=== PATIENT | female | born 2000 | race Caucasian/White ===

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

== ENCOUNTER 2018-01-24 12:18 | Emergency (ER) | payer OTHER ==
[2018-01-24] MEDS ORDERED: ACETAMINOPHEN 500 MG TAB ONE (14:38)
[2018-01-24] MEDS ORDERED: NA CHLORIDE 0.9% 1,000 ML ONE (14:39)
[2018-01-24 15:27] LABS: Absolute Monocytes 0.8 K/uL (0.1-1.3); Absolute Neutrophil 10.4 K/uL (1.8-8.0); Basophils % 0.2 % (0-1.3); Eosinophils % 0.5 % (0-4.4); Hematocrit 37.3 % (36.0-45.0); Lymphocytes % 14.9 % (15.3-44.8); MCH 30.7 pg (27.0-35.0); MCV 88.2 fL (80-100); MPV 8.7 fL (7.6-11.3); Monocytes % 6.1 % (3.3-12.3); RBC Red Blood Cell Count 4.23 M/uL (3.86-4.86)
[2018-01-24 15:43] LABS: BUN Blood Urea Nitrogen 6 mg/dL (7-18); Bicarbonate 26 mmol/L (21-32); Glucose Level 90 mg/dL (74-106); Potassium 3.9 mmol/L (3.5-5.1); Sodium Level 138 mmol/L (136-145)
--- NOTE | 2018-01-24 16:20 | ER ---
Nurse's Notes [facility] Name: Juan Carlos Mei Age: 17 yrs Sex: Female : 2000 Arrival Date: 01/24/2018 Time: 12:19 Bed 26 Private MD: Unknown, Unknown Diagnosis: Nausea;Near Syncope Presentation: 01/24 12:27 Presenting complaint: Patient states: Reports episode of dizziness and nausea this AM aj at 1030/ Patient reports she was sent home from work. Able to tolerate food as patient reports she ate on her way to the ER. Transition of care: patient was not received from another setting of care. Onset of symptoms was January 24, 2018. Risk Assessment: Do you want to hurt yourself or someone else? Patient reports no desire to harm self or others. Initial Sepsis Screen: Does the patient meet any 2 criteria? No. Patient's initial sepsis screen is negative. Does the patient have a suspected source of infection? No. Patient's initial sepsis screen is negative. Care prior to arrival: None. 12:27 Method Of Arrival: Ambulatory aj 12:27 Acuity: HERVE 3 Triage Assessment: 12:29 General: Appears in no apparent distress. comfortable, Behavior is calm, cooperative, aj appropriate for age. Pain: Denies pain. Neuro: Level of Consciousness is awake, alert, obeys commands, Oriented to person, place, time, situation, Appropriate for age Reports dizziness. Neuro: Reports headache. Respiratory: Airway is patent Trachea midline Respiratory effort is even, unlabored, Respiratory pattern is regular, symmetrical. GI: Reports nausea. Derm: Skin is intact, is healthy with good turgor, Skin is pink, warm \T\ dry. normal. 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 - Social history:: Smoking status: Patient/guardian denies using tobacco. - Ebola Screening: : Patient negative for fever greater than or equal to 101.5 degrees Fahrenheit, and additional compatible Ebola Virus Disease symptoms Patient denies exposure to infectious person Patient denies travel to an Ebola-affected area in the 21 days before illness onset No symptoms or risks identified at this time. Screenin:52 Abuse screen: Denies threats or abuse. Nutritional screening: No deficits noted. tl3 Tuberculosis screening: No symptoms or risk factors identified. Fall Risk None identified. Assessment: 13:20 General: Appears in no apparent distress. comfortable, slender, well groomed, well tl3 developed, well nourished, Behavior is calm, cooperative, appropriate for age. Pain: Denies pain. Neuro: Level of Consciousness is awake, alert, obeys commands, Oriented to person, place, time, situation, Appropriate for age. Neuro: Reports dizziness. Cardiovascular: Heart tones S1 S2 present Patient's skin is warm and dry. Respiratory: Airway is patent Respiratory effort is even, unlabored, Respiratory pattern is regular, symmetrical, Breath sounds are clear bilaterally. GI: Abdomen is. : Urine is clear. EENT: No signs and/or symptoms were reported regarding the EENT system. Derm: No signs and/or symptoms reported regarding the dermatologic system. Musculoskeletal: No signs and/or symptoms reported regarding the musculoskeletal system. 15:52 Reassessment: Patient appears in no apparent distress at this time. No changes from tl3 previously documented assessment. Patient and/or family updated on plan of care and expected duration. Pain level reassessed. Patient is alert, oriented x 3, equal unlabored respirations, skin warm/dry/pink. no needs at this time. 16:31 Reassessment: Patient appears in no apparent distress at this time. No changes from tl3 previously documented assessment. Patient and/or family updated on plan of care and expected duration. Pain level reassessed. Patient is alert, oriented x 3, equal unlabored respirations, skin warm/dry/pink. Bradley at bedside discussing POC. Vital Signs: 12:29 BP 138 / 76; Pulse 94; Resp 15; Temp 98.2; Pulse Ox 100% on R/A; Weight 86.18 kg; aj Height 5 ft. 4 in. (162.56 cm); 13:44 BP 113 / 66 Supine; Pulse 82; Pulse Ox 100% on R/A; tl3 13:45 BP 118 / 73 Sitting; Pulse 81; Pulse Ox 99% on R/A; tl3 13:46 BP 120 / 79 Standing; Pulse 88; Pulse Ox 100% on R/A; tl3 15:54 BP 104 / 71; Pulse 71; Resp 18; Pulse Ox 100% on R/A; tl3 12:29 Body Mass Index 32.61 (86.18 kg, 162.56 cm) ED Course: 12:19 Patient arrived in ED. mr 12:20 Unknown, Unknown is Private Physician. mr 12:28 Triage completed. 12:29 Arm band placed on right wrist. Patient placed in waiting room, Patient notified of wait time. 13:10 Patient has correct armband on for positive identification. Placed in gown. Bed in low tl3 position. Call light in reach. Side rails up X2. Warm blanket given. 13:12 Bradley Gates PA is PHCP. [facility] 13:12 Orlando Woo MD is Attending Physician. [facility] 13:12 Capri Cardenas, ISABELLA is Primary Nurse. tl3 13:30 EKG done, by ED staff, reviewed by Bradley GLOVER. [facility] 14:10 Inserted saline lock: 20 gauge in right antecubital area, using aseptic technique. tl3 15:52 No provider procedures requiring assistance completed. tl3 16:31 IV discontinued, intact, bleeding controlled, No redness/swelling at site. Pressure tl3 dressing applied. Administered Medications: 14:51 Drug: NS 0.9% 1000 ml Route: IV; Rate: 1000 ml; Site: right antecubital; tl3 15:52 Follow up: IV Status: Completed infusion; IV Intake: 1000ml tl3 14:51 Drug: Tylenol 1000 mg Route: PO; tl3 15:51 Follow up: Response: No adverse reaction tl3 Intake: 15:52 IV: 1000ml; Total: 1000ml. tl3 Outcome: 16:20 Discharge ordered by . 8 16:31 Discharged to home ambulatory. tl3 16:31 Condition: good 16:31 Discharge instructions given to patient, family, Instructed on discharge instructions, follow up and referral plans. Demonstrated understanding of instructions, follow-up care. 16:33 Patient left the ED. tl3 Signatures: Nany Lane RN RN aj Rivera, Maria mr Roszak, Josh, PA PA Rebecca Tirado [facility] Capri Cardenas RN RN tl3
--- NOTE | 2018-01-24 16:20 | EDPHYS ---
Physician Documentation [facility] Name: Juan Carlos Mei Age: 17 yrs Sex: Female : 2000 Arrival Date: 01/24/2018 Time: 12:19 Bed 26 Private MD: Unknown, Unknown ED Physician Orlando Woo HPI: 01/24 13:56 This 17 yrs old Female presents to ER via Ambulatory with complaints of jr8 Nausea. 13:56 The patient presents to the emergency department with nausea. Onset: The jr8 symptoms/episode began/occurred acutely, today. Possible causes: . The symptoms are aggravated by nothing. The symptoms are alleviated by nothing. Associated signs and symptoms: Pertinent positives: dizziness and near syncope. Severity of symptoms: At their worst the symptoms were mild in the emergency department the symptoms are unchanged. The patient has not experienced similar symptoms in the past. The patient has not recently seen a physician. 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 - Social history:: Smoking status: Patient/guardian denies using tobacco. - Ebola Screening: : Patient negative for fever greater than or equal to 101.5 degrees Fahrenheit, and additional compatible Ebola Virus Disease symptoms Patient denies exposure to infectious person Patient denies travel to an Ebola-affected area in the 21 days before illness onset No symptoms or risks identified at this time. ROS: 13:56 Eyes: Negative for injury, pain, redness, and discharge, ENT: Negative for injury, jr8 pain, and discharge, Neck: Negative for injury, pain, and swelling, Cardiovascular: Negative for chest pain, palpitations, and edema, Respiratory: Negative for shortness of breath, cough, wheezing, and pleuritic chest pain, Abdomen/GI: Negative for abdominal pain, vomiting, diarrhea, and constipation, Back: Negative for injury and pain, MS/Extremity: Negative for injury and deformity, Skin: Negative for injury, rash, and discoloration. 13:56 Neuro: Positive for dizziness, near syncope, Negative for altered mental status, gait disturbance, headache, hearing loss, loss of consciousness, numbness, seizure activity, speech changes, syncope, tinnitus, tremor, visual changes, weakness. Exam: 13:56 Eyes: Pupils equal round and reactive to light, extra-ocular motions intact. Lids and jr8 lashes normal. Conjunctiva and sclera are non-icteric and not injected. Cornea within normal limits. Periorbital areas with no swelling, redness, or edema. ENT: Nares patent. No nasal discharge, no septal abnormalities noted. Tympanic membranes are normal and external auditory canals are clear. Oropharynx with no redness, swelling, or masses, exudates, or evidence of obstruction, uvula midline. Mucous membranes moist. Neck: Trachea midline, no thyromegaly or masses palpated, and no cervical lymphadenopathy. Supple, full range of motion without nuchal rigidity, or vertebral point tenderness. No Meningismus. Cardiovascular: Regular rate and rhythm with a normal S1 and S2. No gallops, murmurs, or rubs. Normal PMI, no JVD. No pulse deficits. Respiratory: Lungs have equal breath sounds bilaterally, clear to auscultation and percussion. No rales, rhonchi or wheezes noted. No increased work of breathing, no retractions or nasal flaring. Abdomen/GI: Soft, non-tender, with normal bowel sounds. No distension or tympany. No guarding or rebound. No evidence of tenderness throughout. Back: No spinal tenderness. No costovertebral tenderness. Full range of motion. Skin: Warm, dry with normal turgor. Normal color with no rashes, no lesions, and no evidence of cellulitis. MS/ Extremity: Pulses equal, no cyanosis. Neurovascular intact. Full, normal range of motion. Neuro: Awake and alert, GCS 15, oriented to person, place, time, and situation. Cranial nerves II-XII grossly intact. Motor strength 5/5 in all extremities. Sensory grossly intact. Cerebellar exam normal. Normal gait. Vital Signs: 12:29 BP 138 / 76; Pulse 94; Resp 15; Temp 98.2; Pulse Ox 100% on R/A; Weight 86.18 kg; aj Height 5 ft. 4 in. (162.56 cm); 13:44 BP 113 / 66 Supine; Pulse 82; Pulse Ox 100% on R/A; tl3 13:45 BP 118 / 73 Sitting; Pulse 81; Pulse Ox 99% on R/A; tl3 13:46 BP 120 / 79 Standing; Pulse 88; Pulse Ox 100% on R/A; tl3 15:54 BP 104 / 71; Pulse 71; Resp 18; Pulse Ox 100% on R/A; tl3 12:29 Body Mass Index 32.61 (86.18 kg, 162.56 cm) aj MDM: 13:14 Patient medically screened. 8 16:18 Data reviewed: vital signs, nurses notes, lab test result(s), EKG. Data interpreted: 8 Pulse oximetry: on room air is 100 %. Interpretation: normal. Counseling: I had a detailed discussion with the patient and/or guardian regarding: the historical points, exam findings, and any diagnostic results supporting the discharge/admit diagnosis, lab results, the need for outpatient follow up, an OB/Gyne specialist, to return to the emergency department if symptoms worsen or persist or if there are any questions or concerns that arise at home. Response to treatment: the patient's symptoms have markedly improved after treatment, patient is well hydrated. 01/24 13:14 Order name: CBC with Diff; Complete Time: 15:35 01/24 13:14 Order name: Basic Metabolic Panel; Complete Time: 15:51 rust 01/24 13:14 Order name: IV; Complete Time: 14:52 rust 01/24 13:14 Order name: EKG; Complete Time: 13:15 01/24 13:14 Order name: EKG - Nurse/Tech; Complete Time: 14:31 01/24 13:54 Order name: Urine Dipstick-Ancillary (obtain specimen); Complete Time: 16:33 rust 01/24 13:54 Order name: Orthostatics; Complete Time: 14:51 rust Administered Medications: 14:51 Drug: NS 0.9% 1000 ml Route: IV; Rate: 1000 ml; Site: right antecubital; tl3 15:52 Follow up: IV Status: Completed infusion; IV Intake: 1000ml tl3 14:51 Drug: Tylenol 1000 mg Route: PO; tl3 15:51 Follow up: Response: No adverse reaction tl3 Disposition: 01/24/18 16:20 Discharged to Home. Impression: Nausea, Near Syncope . - Condition is Stable. - Discharge Instructions: Nausea, Adult. - Medication Reconciliation Form, Thank You Letter, Antibiotic Education, Prescription Opioid Use form. - Follow up: Private Physician; When: 5 - 6 days; Reason: Recheck today's complaints, Continuance of care, Re-evaluation by your physician. - Problem is new. - Symptoms have improved. Addendum: 01/26/2018 08:04 Co-signature as Attending Physician, Orlando Woo MD I agree with the assessment and w a plan of care. Signatures: Dispatcher [employer] EDNany Shi RN RN Bradley Thomas PA PA jr8 Orlando Woo MD MD wa Lowrey, Tammy RN RN tl3 Corrections: (The following items were deleted from the chart) 01/24 16:33 16:20 01/24/2018 16:20 Discharged to Home. Impression: Nausea; Near Syncope . Condition tl3 is Stable. Forms are Medication Reconciliation Form, Thank You Letter, Antibiotic Education, Prescription Opioid Use. Follow up: Private Physician; When: 5 - 6 days; Reason: Recheck today's complaints, Continuance of care, Re-evaluation by your physician. Problem is new. Symptoms have improved. jr8
--- NOTE | 2018-01-26 06:57 | EKG ---
Test Date: 2018-01-24 Test Time: 13:25:39 Tool Programmer: ANGEL MEASUREMENT RESULTS: Intervals: Rate: 84 [place]: 134 QRSD: 78 QT: 362 QTc: 427 [place]: P: 18 [place]: 134 QRS: 29 T: 25 INTERPRETIVE STATEMENTS: Normal sinus rhythm Normal ECG No previous ECG available for comparison Electronically Signed On 01-26-18 06:51:48 CDT by Lucas Marrero
== END 2018-01-24 16:33 | disposition home or self-care (01) ==
LOC: ER 12:18
DX: R11.0 Nausea (principal); R55 Syncope and collapse
CPT/HCPCS: 36415; 80048; 85025; 93005; 96360; 99284; J7030